=== PATIENT | female | born 1950 | race Caucasian/White ===

== ENCOUNTER 2016-09-25 15:58 | Emergency (ER) | payer OTHER ==
[~2016-09-25] VITALS: Ht 162.6 cm; Wt 86.2 kg
--- NOTE | 2016-09-25 16:18 | ED ANIMAL BITE/WOUND CHECK ---
History of Present Illness General Chief Complaint: Animal/Insect Bite Stated Complaint: BITTEN BY CAT Source: patient Exam Limitations: no limitations Vital Signs & Intake/Output Vital Signs & Intake/Output Vital Signs Date Time Temp Pulse Resp B/P B/P Pulse O2 O2 Flow FiO2 Mean Ox Delivery Rate 09/25 1733 97.6 63 18 130/71 99 Room Air 09/25 1603 97.6 84 15 133/83 96 Room Air Room Air Allergies Coded Allergies: chlorzoxazone (From PARAFON FORTE) (JAUNDICE 09/25/16) methylprednisolone (From MEDROL) (PROJECTILE VOMITING, N/V/D PER PT FROM ORAL STEROIDS 09/25/16) oxycodone (PROJECTILE VOMITING, N/V/D 09/25/16) pentazocine (From TALWIN) (JAUNDICE 09/25/16) Uncoded Allergies: MUSCLE RELAXERS (Intermediate, JAUNDICE 09/25/16) Reconcile Medications Amlodipine Besylate/Benazepril (Lotrel 10-20 MG Capsule) 10 MG-20 MG CAPSULE 1 CAP PO DAILY HEART/BP (Reported) Amoxicillin/Potassium Clav (Augmentin 875-125 Tablet) 875 MG-125 MG TABLET 1 TAB PO BID INFECTION Aspirin (Ecotrin*) 81 MG TABLET.DR 1 TAB PO DAILY HEART/BLOOD (Reported) Cyanocobalamin (Vitamin B-12) (Cyanocobalamin Injection) 1,000 MCG/ML VIAL 1 ML IM Q30D SUPPLEMENT (Reported) Darifenacin (Enablex) 7.5 MG TAB.ER.24H 1 TAB PO DAILY BLADDER (Reported) Duloxetine HCl (Cymbalta) 60 MG CAPSULE.DR 1 CAP PO QPM NERVE PAIN (Reported) Ergocalciferol (Vitamin D2) (Vitamin D2) 50,000 UNIT CAPSULE 1 CAP PO QSUN SUPPLEMENT (Reported) Fentanyl 50 MCG/HOUR PATCH.TD72 1 PAT TOP Q2D PAIN (Reported) Hydrocodone/Acetaminophen (Hydrocodon-Acetaminoph 7.5-325) 7.5 MG-325 MG TABLET 1 TAB PO PRN PAIN/MIGRAINE (Reported) Isosorbide Mononitrate (Isosorbide Mononitrate ER) 30 MG TAB.ER.24H 1 TAB PO DAILY HEART (Reported) Lansoprazole (Prevacid) 30 MG CAPSULE.DR 1 CAP PO BID GERD (Reported) Pindolol 5 MG TABLET 0.5 TAB PO BID HEART/BP (Reported) Pregabalin (Lyrica) 200 MG CAPSULE 1 CAP PO QPM NERVE PAIN (Reported) Topiramate (Topamax) 50 MG TABLET 1 TAB PO QPM MIGRAINES (Reported) Triage Note: PT TO ED FOR C/C OF CAT BITE TO L HAND. CAT HASN'T HAD ANY SHOTS. PT UNSURE OF LAST TETANUS SHOT. +SWELLING AND BRUISING TO LEFT HAND AND PUNCTURE WOUNDS. AFEBRILE IN TRIAGE. Triage Nurses Notes Reviewed? yes Onset: Abrupt Duration: hour(s): (FEW) Timing: single episode today Injury Environment: home Is Injury an Animal Bite? Yes Animal Type: cat Context of Animal Attack: provoked attack Appearance of Animal: appeared well Severity: mild, moderate HPI: This is a 66-year-old female presents to the ER for chief complaint of sudden onset of left hand pain after being by bitten by her cat at home. The cat was fighting with his brother and she tried to intervene was bit by the. Patient states that the PET is a household pet. Usually very loving. She states that he is never acted out before. She washed out the wound thoroughly at home with soap and water. Past History Travel History Traveled to [place] past 21 day No Medical History Any Pertinent Medical History? see below for history Cardiovascular: hypertension, hyperlipidemia, MITRAL VALVE PROLAPSE LBBB SINUS ARRYTHMIA Musculoskeletal: DDD ON PAIN MANAGEMENT Surgical History Surgical History: non-contributory Psychosocial History What is your primary language Macedonian Tobacco Use: Never used ETOH Use: denies use Illicit Drug Use: denies illicit drug use Family History Hx Contributory? No Review of Systems Review of Systems Constitutional: Denies: chills, fever. EENTM: Reports: no symptoms. Respiratory: Denies: cough, short of breath. Cardiovascular: Denies: chest pain. GI: Denies: abdominal pain. Genitourinary: Reports: no symptoms. Musculoskeletal: Reports: muscle pain. Skin: Reports: see HPI. Neurological/Psychological: Reports: no symptoms. Hematologic/Endocrine: Reports: bleeding. Denies: polyuria, polydipsia. Immunologic/Allergic: Denies: splenectomy. All Other Systems: Reviewed and Negative Physical Exam Physical Exam General Appearance: well developed/nourished, mild distress Head: atraumatic Eyes: Bilateral: PERRL, EOMI. Ears, Nose, Throat: hearing grossly normal Neck: normal inspection, full range of motion Peripheral Pulses: 2+ radial (R), 2+ radial (L) Back: normal inspection Extremities: normal range of motion, PUNCTURE WOUNDS TO LEFT DORSUM OF HAND Neurologic/Psych: awake, alert, oriented x 3, normal mood/affect Skin: intact, normal color, warm/dry Lymphatic: no anterior cervical caro Diagram Hands, Dorsum: 1) SWELLING, PUNCTURE WOUNDS Progress Differential Diagnosis: CAT BITE, INFECTION, FRACTURE, FOREIGN BODY Plan of Care: Current Medications Sig/Ritika Start time Last Medication Dose Stop Time Status Admin Ketorolac 60 MG ONCE ONE 09/25 1729 AC 09/25 Tromethamine 09/25 1730 171 (Toradol) TETANUS, AUGMENTIN, TORADOL ORDERED. XRAY ORDERED. (MARRY LÓPEZ,CAROLYN) Diagnostic Imaging: Viewed by Me: Radiology Read. Discussed w/RAD: Radiology Read. Comments: PATIENT: TEJA JAY PRESENT AGE: 66 PATIENT ACCOUNT NO: [id number] : 51 LOCATION: [facility] ORDERING PHYSICIAN: CAROLYN TUTTLE MD SERVICE DATE: 09/25/16 EXAM TYPE: RAD - XRY-HAND, TWO VIEWS L EXAMINATION: XR HAND, LEFT CLINICAL INFORMATION: Left hand pain after animal bite. Rule out fracture. Rule out foreign body. COMPARISON: None TECHNIQUE: AP and lateral views of the left hand. FINDINGS: A bandage is seen over the thenar eminence and dorsal soft tissues of the metacarpal bones. No underlying radiopaque foreign body is seen. No subcutaneous emphysema is noted. The underlying bones are intact. No acute fracture or dislocation is seen. Minimal spurring is noted at the interphalangeal joint of the first digit. IMPRESSION: 1. No evidence of acute fracture or radiopaque foreign body. 2. Mild degenerative change at the first interphalangeal joint. DICTATED BY: RAND KHAN MD DATE/TIME DICTATED:09/25/161716 PRIMARY EDUCATION PROFESSOR:MICAELA DATE/TIME TRANSCRIBED:09/25/161716 CONFIDENTIAL, DO NOT COPY WITHOUT APPROPRIATE AUTHORIZATION. <Electronically signed in Other Vendor System> SIGNED BY: RAND KHAN MD 7 Departure Departure Time of Disposition: 1720 Disposition: HOME OR SELF CARE Condition: Stable Clinical Impression Primary Impression: Cat bite of hand Additional Instructions: Take the Augmentin and Motrin as directed. Follow-up with your doctor Departure Forms: Customer Survey General Discharge Information Prescriptions: Current Visit Scripts Amoxicillin/Potassium Clav (Augmentin 875-125 Tablet) 1 TAB PO BID #20 TAB
[2016-09-25] MEDS ORDERED: PINDOLOL PO (17:21)
[2016-09-25] MEDS ORDERED: LOTREL 10-20 M1 EACH PO (17:21)
[2016-09-25] MEDS ORDERED: ENABLEX7.5 MG PO (17:22)
[2016-09-25] MEDS ORDERED: ISOSORBIDE MONO30 M1 PO (17:22)
[2016-09-25] MEDS ORDERED: PREVACID30 M1 PO (17:22)
[2016-09-25] MEDS ORDERED: CYMBALTA60 M1 PO (17:23)
[2016-09-25] MEDS ORDERED: LYRICA200 M1 PO (17:23)
[2016-09-25] MEDS ORDERED: TOPAMAX50 M1 PO (17:24)
[2016-09-25] MEDS ORDERED: FENTANYL1 EAC3 TOP (17:24)
--- NOTE | 2016-09-25 17:24 | RADIOLOGY REPORT ---
EXAMINATION: XR HAND, LEFT CLINICAL INFORMATION: Left hand pain after animal bite. Rule out fracture. Rule out foreign body. COMPARISON: None TECHNIQUE: AP and lateral views of the left hand. FINDINGS: A bandage is seen over the thenar eminence and dorsal soft tissues of the metacarpal bones. No underlying radiopaque foreign body is seen. No subcutaneous emphysema is noted. The underlying bones are intact. No acute fracture or dislocation is seen. Minimal spurring is noted at the interphalangeal joint of the first digit. IMPRESSION: 1. No evidence of acute fracture or radiopaque foreign body. 2. Mild degenerative change at the first interphalangeal joint.
[2016-09-25] MEDS ORDERED: ASPIRIN EC81 M1 PO (17:25)
[2016-09-25] MEDS ORDERED: VITAMIN D250000 UNIT PO (17:25)
[2016-09-25] MEDS ORDERED: HYDROCODON-ACE1 EAC3 PO (17:25)
[2016-09-25] MEDS ORDERED: CYANOCOBAL1000 MCG/2 IM (17:26)
[2016-09-25 17:33] VITALS: BP 130/71
[2016-09-25] MEDS ORDERED: AUGMENTIN 875-1 EACH PO ×2 (17:35)
== END 2016-09-25 17:47 ==
LOC: ERH 15:58
DX: S61.452A Open bite of left hand, initial encounter (principal); W55.01XA Bitten by cat, initial encounter; Y93.9 Activity, unspecified; Y92.009 Unspecified place in unspecified non-institutional (private) residence as the place of occurrence of the external cause
CPT/HCPCS: 73120-LT; 90471; 90714; 96372; J1885; J3490